=== PATIENT | male | born 1940 | race Caucasian/White ===

== ENCOUNTER → 2018-12-16 | Outpatient (CLI) | payer SELFPAY | END | disposition home or self-care (01) | LOC: RAD 10:39 | PROVIDERS: ATTEND Internal Medicine Hematology & Oncology | DX: C61 Malignant neoplasm of prostate (principal) | CPT/HCPCS: 36573; C1751 ==

== ENCOUNTER 2019-01-04 10:10 | Inpatient (IN) | payer MEDICARE, OTHER ==
[2019-01-04] VITALS (8 sets, daily range): BP systolic 64–105; BP diastolic 38–56
[~2019-01-04] VITALS: Ht 185.4 cm; Wt 93.0 kg
--- NOTE | 2019-01-04 10:17 | NUR ---
THIS IS A 78 YEAR OLD MALE WHO WAS BIB BY AMBULANCE DUE TO SYNCOPAL EPISODE. PT IS VISITING FROM [facility] TO GET CANCER TREATMENT FOR LOCAL MD. PT HAS STAGE 4 PROSTATE CA. PT RECEIVED NUPOGEN YESTERDAY. PT PLACED ON PIG STICKER PACED, AT 76, CONTINOUS SP02 AND CYCLE VS.
[2019-01-04] MEDS ORDERED: SODIUM CHLORIDE 0.9% 1,000ML IVBOLUS ONE (10:30)
[2019-01-04] MEDS ORDERED: SODIUM CHLORIDE FLUSH 10ML SYR IVF ONE (10:30)
[2019-01-04] MEDS: LACTATED RINGERS 500 ML IV SCH ×2 (10:30→11:30)
[2019-01-04] MEDS ORDERED: LEVO150T PO (10:39)
--- NOTE | 2019-01-04 10:50 | NUR ---
IV FLUIDS RUNING WELL VIA PICC LINE. AT BS. DISCUSSED PLAN OF CARE WITH PATIENT. PT VERBALIZED UNDERSTANDING.
[2019-01-04 11:43] LABS: ALBUMIN 3.9 g/dL (3.4-5.0); ANION GAP 7 mmol/L (5-15); CALCIUM 7.9 mg/dL (8.5-10.1); CHLORIDE 104 mmol/L (98-107)
[2019-01-04 11:50] LABS: ALANINE AMINOTRANSFERASE 24 U/L (12-78); ALKALINE PHOSPHATASE 327 U/L (45-117); BILIRUBIN,TOTAL 0.9 mg/dL (0.2-1.0); CREATININE 1.15 mg/dL (0.7-1.3); TOTAL PROTEIN 6.8 g/dL (6.4-8.2); TROPONIN I < 0.015 ng/mL (0.000-0.045)
[2019-01-04 11:59] LABS: MEAN CORPUSCULAR HEMOGLOBIN 30.1 pg (27.5-34.5); MEAN CORPUSCULAR HGB CONC 33.7 g/dL (33.2-36.2); MEAN CORPUSCULAR VOLUME 89.6 fL (81-97); MEAN PLATELET VOLUME 7.5 fL (7.4-10.4); PLATELET COUNT 151 x10^3/uL (130-400); RED BLOOD COUNT 4.37 x10^6/uL (4.38-5.82); RED CELL DISTRIBUTION WIDTH 15.3 % (9.4-14.8)
[2019-01-04 12:05] LABS: MD YES
--- NOTE | 2019-01-04 12:05 | NUR ---
PATIENT STATES HE HAS CHILLS AND IS COLD, TEMP IS 98.8. NOTIFIED.
[2019-01-04 12:13] LABS: BAND#(MANUAL) 0.02 x10^3/uL; BANDS%(MANUAL) 2 % (0-7); LYMPH#(MANUAL) 0.42 x10^3/uL (1-3.4); LYMPHS% (MANUAL) 52 % (22-44); MONOS% (MANUAL) 25 % (2-9); REACTIVE LYMPHS # (MANUAL) 0.03 x10^3/uL (0-0); REACTIVE LYMPHS % (MANUAL) 4 % (0-0); SEG#(MANUAL) 0.14 x10^3/uL (1.8-6.8); SEGS% (MANUAL) 17 % (42-75)
[2019-01-04 12:14] LABS: ANISOCYTOSIS 1+
[2019-01-04 12:15] LABS: <PLATELET ESTIMATE> ADEQUATE; <PLT MORPHOLOGY> NORMAL PLT MORPH; POLYCHROMASIA 1+
--- NOTE | 2019-01-04 12:37 | NUR ---
BREAK RN FOR PRIMARY RN'S SUZANNE AND CORNELIUS. PT RESTING IN POSITION OF COMFORT WITH WARM BLANKETS AND WARMER. ADMITTING PROVIDER AT BEDSIDE FOR EVALUATION. PT DENIES URGE TO USE RESTROOM, AWARE UA SAMPLE IS NEEDED. VSS. SR ON MONITOR. CALL LIGHT IN REACH. FALL PRECAUTIONS IN PLACE. SIDE RAILS UPX2. SPOUSE AT BEDSIDE.
--- NOTE | 2019-01-04 12:49 | NUR ---
BREAK RN. ROOM [id number] RECEIVED, PHONE REPORT CALLED TO FLOOR GERARDO AKERS AT THIS TIME. PT READY FOR TRANSPORT.
[2019-01-04] MEDS ORDERED: ONDANSETRON 2MG/ML, 2ML IVPush PRN (13:00)
[2019-01-04] MEDS ORDERED: SODIUM CHLORIDE FLUSH 10ML SYR IVF PRN (13:00)
[2019-01-04] MEDS ORDERED: ONDANSETRON ODT 4 MG PO PRN (13:00)
--- NOTE | 2019-01-04 13:10 | NUR ---
REPORT AND CARE BACK TO PRIMARY RN'S ROSALVA
[2019-01-04] MEDS: ACETAMINOPHEN 325 MG TABLET PO PRN (13:49)
[2019-01-04] MEDS: LACTATED RINGERS 1,000 ML IV SCH ×2 (13:50→19:49)
[2019-01-04] MEDS: PIPERACILLIN/TAZO/PMX 3.375GM 50 ML IV SCH ×2 (13:50→19:49)
[2019-01-04] MEDS ORDERED: VANCOMYCIN PER PHARMACY MC PRN (14:30)
[2019-01-04] MEDS ORDERED: PHARMACOKINETIC MONITORING MC PRN (14:30)
[2019-01-04] MEDS: VANCOMYCIN 1,600 MG in SODIUM CHLORIDE 0.9% 250 ML IV SCH (14:43)
[2019-01-04 14:58] LABS: CULTURE INDICATED? YES; MICROSCOPIC INDICATED
[2019-01-04] MEDS ORDERED: LACTATED RINGERS 1,000 ML IVBOLUS ONE ×3 (16:30→22:30)
[2019-01-05] MEDS: NOREPINEPHRINE 4 MG in SODIUM CHLORIDE 0.9% 246 ML IV PRN ×4 (01:02→15:52)
[2019-01-05] MEDS: LACTATED RINGERS 1,000 ML IV SCH ×3 (02:15→22:20)
[2019-01-05] MEDS: PIPERACILLIN/TAZO/PMX 3.375GM 50 ML IV SCH ×4 (02:15→20:02)
[2019-01-05] MEDS: LEVOTHYROXINE 150 MCG TABLET PO SCH (05:14)
[2019-01-05] MEDS ORDERED: VASOPRESSIN 100 UNIT in SODIUM CHLORIDE 0.9% 495 ML IV PRN (05:30)
[2019-01-05 07:55] LABS: ANION GAP 7 mmol/L (5-15); CALCIUM 7.5 mg/dL (8.5-10.1); CHLORIDE 102 mmol/L (98-107); CREATININE 1.62 mg/dL (0.7-1.3)
[2019-01-05 08:12] LABS: MD YES; MEAN CORPUSCULAR HEMOGLOBIN 30.5 pg (27.5-34.5); MEAN CORPUSCULAR HGB CONC 33.7 g/dL (33.2-36.2); MEAN CORPUSCULAR VOLUME 90.5 fL (81-97); MEAN PLATELET VOLUME 7.7 fL (7.4-10.4); PLATELET COUNT 164 x10^3/uL (130-400); RED BLOOD COUNT 3.99 x10^6/uL (4.38-5.82); RED CELL DISTRIBUTION WIDTH 15.4 % (9.4-14.8)
[2019-01-05 08:16] LABS: BANDS%(MANUAL) 4 % (0-7); MONOS% (MANUAL) 29 % (2-9); REACTIVE LYMPHS # (MANUAL) 0.07 x10^3/uL (0-0); REACTIVE LYMPHS % (MANUAL) 3 % (0-0)
[2019-01-05 08:17] LABS: <PLATELET ESTIMATE> ADEQUATE; <PLT MORPHOLOGY> NORMAL PLT MORPH; ANISOCYTOSIS 1+; LYMPH#(MANUAL) 1.37 x10^3/uL (1-3.4); LYMPHS% (MANUAL) 57 % (22-44); POLYCHROMASIA 1+; SEG#(MANUAL) 0.17 x10^3/uL (1.8-6.8); SEGS% (MANUAL) 7 % (42-75)
[2019-01-05] MEDS: VANCOMYCIN 1,600 MG in SODIUM CHLORIDE 0.9% 250 ML IV SCH (09:20)
[2019-01-05] MEDS: TBO-FILGRASTIM 480 MCG/0.8 ML SQ SCH (10:59)
[2019-01-05] MEDS: TAMSULOSIN 0.4 MG CAP.ER.24H PO SCH (17:03)
[2019-01-05] MEDS: ANASTROZOLE 1 MG TABLET PO SCH (17:05)
[2019-01-05] MEDS: ACETAMINOPHEN 325 MG TABLET PO PRN (19:21)
[2019-01-06] MEDS: PIPERACILLIN/TAZO/PMX 3.375GM 50 ML IV SCH ×4 (02:00→20:00)
[2019-01-06 03:39] LABS: ALANINE AMINOTRANSFERASE 42 U/L (12-78); ALBUMIN 2.4 g/dL (3.4-5.0); ANION GAP 8 mmol/L (5-15); CALCIUM 7.3 mg/dL (8.5-10.1); CHLORIDE 101 mmol/L (98-107); CREATININE 0.98 mg/dL (0.7-1.3)
[2019-01-06 03:42] LABS: ALKALINE PHOSPHATASE 162 U/L (45-117); BILIRUBIN,TOTAL 0.8 mg/dL (0.2-1.0); TOTAL PROTEIN 5.2 g/dL (6.4-8.2); VANCOMYCIN,RANDOM 8.9 mcg/mL
[2019-01-06 04:29] LABS: MEAN CORPUSCULAR HEMOGLOBIN 30.9 pg (27.5-34.5); MEAN CORPUSCULAR HGB CONC 33.6 g/dL (33.2-36.2); MEAN CORPUSCULAR VOLUME 92.1 fL (81-97); PLATELET COUNT 85 x10^3/uL (130-400); RED BLOOD COUNT 3.16 x10^6/uL (4.38-5.82)
[2019-01-06 04:30] LABS: MD YES
[2019-01-06 04:37] LABS: <PLATELET ESTIMATE> DECREASED; ANISOCYTOSIS 1+; BAND#(MANUAL) 0.35 x10^3/uL; BANDS%(MANUAL) 11 % (0-7); EOS#(MANUAL) 0.06 x10^3/uL (0.0-0.4); EOS% (MANUAL) 2 % (1-7); LYMPH#(MANUAL) 1.31 x10^3/uL (1-3.4); LYMPHS% (MANUAL) 41 % (22-44); MONOS#(MANUAL) 0.77 x10^3/uL (0.3-2.7); MONOS% (MANUAL) 24 % (2-9); MYELOCYTES# (MANUAL) 0.03 x10^3/uL (0-0); MYELOCYTES% (MANUAL) 1 % (0-0); REACTIVE LYMPHS # (MANUAL) 0.06 x10^3/uL (0-0); REACTIVE LYMPHS % (MANUAL) 2 % (0-0); SEG#(MANUAL) 0.61 x10^3/uL (1.8-6.8); SEGS% (MANUAL) 19 % (42-75)
[2019-01-06 04:38] LABS: <PLT MORPHOLOGY> NORMAL PLT MORPH
[2019-01-06 05:48] VITALS: BP 127/64
[2019-01-06] MEDS: LACTATED RINGERS 1,000 ML IV SCH (06:08)
[2019-01-06] MEDS: LEVOTHYROXINE 150 MCG TABLET PO SCH (06:09)
[2019-01-06] MEDS ORDERED: TAMSULOSIN 0.4 MG CAP.ER.24H PO SCH (09:00)
[2019-01-06] MEDS ORDERED: ANASTROZOLE 1 MG TABLET PO SCH (09:00)
[2019-01-06] MEDS ORDERED: LIDODERM 5% PATCH TD ONE (11:00)
[2019-01-06] MEDS: VANCOMYCIN 1,600 MG in SODIUM CHLORIDE 0.9% 250 ML IV SCH (11:17)
[2019-01-06 13:37] LABS: MEAN CORPUSCULAR HEMOGLOBIN 30.7 pg (27.5-34.5); MEAN CORPUSCULAR HGB CONC 33.1 g/dL (33.2-36.2); MEAN CORPUSCULAR VOLUME 92.5 fL (81-97); PLATELET COUNT 94 x10^3/uL (130-400); RED BLOOD COUNT 3.34 x10^6/uL (4.38-5.82); RED CELL DISTRIBUTION WIDTH 15.6 % (9.4-14.8)
[2019-01-06 13:38] LABS: MD YES
[2019-01-06 13:50] LABS: BAND#(MANUAL) 0.76 x10^3/uL; BANDS%(MANUAL) 20 % (0-7); BASOS#(MANUAL) 0.04 x10^3/uL (0-0.1); BASOS% (MANUAL) 1 % (0-1); METAMYELOCYTES# (MANUAL) 0.08 x10^3/uL (0-0); METAMYELOCYTES% (MANUAL) 2 % (0-1); MONOS#(MANUAL) 0.61 x10^3/uL (0.3-2.7); MONOS% (MANUAL) 16 % (2-9); NRBC % (MANUAL) 2 % (0-1)
[2019-01-06 13:51] LABS: ANISOCYTOSIS 1+; LYMPH#(MANUAL) 1.18 x10^3/uL (1-3.4); LYMPHS% (MANUAL) 31 % (22-44); SEG#(MANUAL) 1.14 x10^3/uL (1.8-6.8); SEGS% (MANUAL) 30 % (42-75)
[2019-01-06 13:52] LABS: HYPOCHROMIA 1+
[2019-01-06 13:53] LABS: <PLATELET ESTIMATE> DECREASED; LARGE PLATELETS 1+
[2019-01-06] MEDS: TBO-FILGRASTIM 480 MCG/0.8 ML SQ SCH (15:41)
[2019-01-06] MEDS ORDERED: DILTIAZEM 5 MG/ML, 5ML ONE (17:19)
[2019-01-06] MEDS ORDERED: DILTIAZEM 5 MG/ML, 5ML IVPush PRN (17:30)
[2019-01-06] MEDS: TAMSULOSIN 0.4 MG CAP.ER.24H PO SCH (17:34)
[2019-01-06] MEDS: ANASTROZOLE 1 MG TABLET PO SCH (17:37)
[2019-01-06] MEDS ORDERED: FILTER 0.22 MICRON IV ONE (18:00)
[2019-01-06] MEDS ORDERED: AMIODARONE 900 MG in DEXTROSE 5% 482 ML IV PRN (18:00)
[2019-01-06] MEDS ORDERED: AMIODARONE 150 MG in DEXTROSE 5% 100 ML IV ONE (18:00)
[2019-01-07] MEDS: PIPERACILLIN/TAZO/PMX 3.375GM 50 ML IV SCH (02:00)
[2019-01-07 04:23] LABS: MEAN CORPUSCULAR HEMOGLOBIN 30.7 pg (27.5-34.5); MEAN CORPUSCULAR HGB CONC 33.7 g/dL (33.2-36.2); MEAN CORPUSCULAR VOLUME 91.3 fL (81-97); MEAN PLATELET VOLUME 8.4 fL (7.4-10.4); PLATELET COUNT 114 x10^3/uL (130-400); RED CELL DISTRIBUTION WIDTH 15.3 % (9.4-14.8)
[2019-01-07 04:35] LABS: ANION GAP 7 mmol/L (5-15); CALCIUM 7.7 mg/dL (8.5-10.1); CHLORIDE 108 mmol/L (98-107); CREATININE 0.82 mg/dL (0.7-1.3)
[2019-01-07 04:45] LABS: MD YES
[2019-01-07 04:47] LABS: <PLATELET ESTIMATE> DECREASED; ANISOCYTOSIS 1+; BAND#(MANUAL) 3.08 x10^3/uL; BANDS%(MANUAL) 27 % (0-7); HYPOCHROMIA 1+; LYMPH#(MANUAL) 1.48 x10^3/uL (1-3.4); LYMPHS% (MANUAL) 13 % (22-44); MONOS#(MANUAL) 1.37 x10^3/uL (0.3-2.7); MONOS% (MANUAL) 12 % (2-9); PMNS WITH VACUOLES 1+; SEG#(MANUAL) 5.47 x10^3/uL (1.8-6.8); SEGS% (MANUAL) 48 % (42-75); TOXIC GRAN 1+
[2019-01-07 04:48] LABS: <PLT MORPHOLOGY> NORMAL PLT MORPH
[2019-01-07] MEDS: VANCOMYCIN 1,600 MG in SODIUM CHLORIDE 0.9% 250 ML IV SCH (04:49)
[2019-01-07 04:55] VITALS: BP 99/48
[2019-01-07] MEDS: LEVOTHYROXINE 150 MCG TABLET PO SCH (05:57)
[2019-01-07] MEDS: POTASSIUM CHLORIDE 20 MEQ TAB.ER.PRT PO SCH ×2 (08:31→17:05)
[2019-01-07] MEDS: CEFAZOLIN PMX 2GM/50ML 50 ML IVPB SCH ×2 (09:40→17:05)
[2019-01-07] MEDS: TAMSULOSIN 0.4 MG CAP.ER.24H PO SCH (17:05)
[2019-01-07] MEDS: ANASTROZOLE 1 MG TABLET PO SCH (17:08)
[2019-01-07 19:57] VITALS: BP 118/74
[2019-01-07] MEDS: ENOXAPARIN 100 MG/ML SQ SCH (19:59)
[2019-01-07 20:27] VITALS: BP 118/72
[2019-01-08] MEDS: CEFAZOLIN PMX 2GM/50ML 50 ML IVPB SCH ×3 (00:20→17:09)
[2019-01-08 01:00] VITALS: BP 107/60
[2019-01-08] MEDS: LEVOTHYROXINE 150 MCG TABLET PO SCH (05:00)
[2019-01-08 07:30] VITALS: BP 100/62
[2019-01-08] MEDS: ENOXAPARIN 100 MG/ML SQ SCH ×2 (08:39→20:39)
[2019-01-08 10:24] LABS: MEAN CORPUSCULAR HEMOGLOBIN 30.1 pg (27.5-34.5); MEAN CORPUSCULAR HGB CONC 33.3 g/dL (33.2-36.2); MEAN CORPUSCULAR VOLUME 90.5 fL (81-97); MEAN PLATELET VOLUME 8.2 fL (7.4-10.4); PLATELET COUNT 110 x10^3/uL (130-400); RED CELL DISTRIBUTION WIDTH 15.4 % (9.4-14.8)
[2019-01-08 11:43] LABS: MD YES
[2019-01-08 11:48] LABS: CALCIUM 7.5 mg/dL (8.5-10.1); CREATININE 0.74 mg/dL (0.7-1.3)
[2019-01-08 11:50] LABS: ANISOCYTOSIS 1+; BANDS%(MANUAL) 4 % (0-7); EOS#(MANUAL) 0.45 x10^3/uL (0.0-0.4); EOS% (MANUAL) 2 % (1-7); LYMPH#(MANUAL) 1.35 x10^3/uL (1-3.4); LYMPHS% (MANUAL) 6 % (22-44); SEGS% (MANUAL) 88 % (42-75)
[2019-01-08 11:51] LABS: <PLATELET ESTIMATE> DECREASED; <PLT MORPHOLOGY> NORMAL PLT MORPH
[2019-01-08 11:56] LABS: ANION GAP 7 mmol/L (5-15); CHLORIDE 110 mmol/L (98-107)
[2019-01-08 14:25] VITALS: BP 122/76
[2019-01-08] MEDS: TAMSULOSIN 0.4 MG CAP.ER.24H PO SCH (17:07)
[2019-01-08] MEDS: ANASTROZOLE 1 MG TABLET PO SCH (17:08)
[2019-01-08 20:24] VITALS: BP 114/65
[2019-01-09] MEDS: CEFAZOLIN PMX 2GM/50ML 50 ML IVPB SCH ×3 (00:56→17:12)
[2019-01-09 01:10] VITALS: BP 115/70
[2019-01-09] MEDS: LEVOTHYROXINE 150 MCG TABLET PO SCH (05:50)
[2019-01-09 06:11] LABS: MEAN CORPUSCULAR HEMOGLOBIN 30.3 pg (27.5-34.5); MEAN CORPUSCULAR HGB CONC 33.4 g/dL (33.2-36.2); MEAN CORPUSCULAR VOLUME 90.7 fL (81-97); MEAN PLATELET VOLUME 7.9 fL (7.4-10.4); PLATELET COUNT 111 x10^3/uL (130-400); RED BLOOD COUNT 3.29 x10^6/uL (4.38-5.82); RED CELL DISTRIBUTION WIDTH 15.9 % (9.4-14.8)
[2019-01-09 06:21] LABS: ANION GAP 4 mmol/L (5-15); CALCIUM 7.6 mg/dL (8.5-10.1); CHLORIDE 110 mmol/L (98-107)
[2019-01-09 06:24] LABS: CREATININE 0.75 mg/dL (0.7-1.3)
[2019-01-09 06:59] VITALS: BP 112/65
[2019-01-09 07:08] LABS: MD YES
[2019-01-09 07:10] LABS: <PLATELET ESTIMATE> DECREASED; <PLT MORPHOLOGY> NORMAL PLT MORPH; ANISOCYTOSIS 1+; BAND#(MANUAL) 1.89 x10^3/uL; BANDS%(MANUAL) 9 % (0-7); LYMPH#(MANUAL) 1.26 x10^3/uL (1-3.4); LYMPHS% (MANUAL) 6 % (22-44); MONOS#(MANUAL) 1.05 x10^3/uL (0.3-2.7); MONOS% (MANUAL) 5 % (2-9); SEGS% (MANUAL) 80 % (42-75)
[2019-01-09] MEDS: ENOXAPARIN 100 MG/ML SQ SCH ×2 (09:25→20:19)
[2019-01-09 09:58] VITALS: BP 128/73
[2019-01-09 14:00] VITALS: BP 146/78
[2019-01-09] MEDS: ANASTROZOLE 1 MG TABLET PO SCH (17:11)
[2019-01-09] MEDS: TAMSULOSIN 0.4 MG CAP.ER.24H PO SCH (17:12)
[2019-01-09 19:27] VITALS: BP 151/78
[2019-01-10] MEDS: ACETAMINOPHEN 325 MG TABLET PO PRN ×2 (00:04→22:11)
[2019-01-10] MEDS: CEFAZOLIN PMX 2GM/50ML 50 ML IVPB SCH ×3 (00:04→18:47)
[2019-01-10 02:45] VITALS: BP 143/71
[2019-01-10] MEDS: LEVOTHYROXINE 150 MCG TABLET PO SCH (04:37)
[2019-01-10 05:57] LABS: MEAN CORPUSCULAR HGB CONC 33.8 g/dL (33.2-36.2); MEAN CORPUSCULAR VOLUME 91.8 fL (81-97); MEAN PLATELET VOLUME 8.1 fL (7.4-10.4); PLATELET COUNT 120 x10^3/uL (130-400); RED BLOOD COUNT 3.23 x10^6/uL (4.38-5.82); RED CELL DISTRIBUTION WIDTH 15.4 % (9.4-14.8)
[2019-01-10 06:08] LABS: HCT (SEDRATE) 30.3 % (39.2-51.8)
[2019-01-10 06:32] LABS: BASOPHILS # (AUTO) 0.02 x10^3/uL (0-0.1); BASOPHILS % (AUTO) 0 % (0-1); EOSINOPHILS # (AUTO) 0.14 x10^3/uL (0-0.4); EOSINOPHILS % (AUTO) 1 % (1-7); LYMPHOCYTES # (AUTO) 1.77 x10^3/uL (1-3.4); LYMPHOCYTES % (AUTO) 10 % (22-44); MD SCAN; MONOCYTES # (AUTO) 0.04 x10^3/uL (0.2-0.8); MONOCYTES % (AUTO) 0 % (2-9); NEUTROPHILS # (AUTO) 15.09 x10^3/uL (1.8-6.8); NEUTROPHILS % (AUTO) 88 % (42-75)
[2019-01-10] MEDS: APIXABAN 5 MG TABLET PO SCH ×2 (09:49→22:06)
[2019-01-10 14:18] VITALS: BP 136/72
[2019-01-10] MEDS: LIDODERM 5% PATCH TD PRN (14:21)
[2019-01-10] MEDS: ANASTROZOLE 1 MG TABLET PO SCH (18:56)
[2019-01-10] MEDS: TAMSULOSIN 0.4 MG CAP.ER.24H PO SCH (18:56)
[2019-01-10 19:57] VITALS: BP 137/70
[2019-01-11 00:51] VITALS: BP 124/65
[2019-01-11] MEDS: CEFAZOLIN PMX 2GM/50ML 50 ML IVPB SCH ×3 (01:09→17:08)
[2019-01-11] MEDS: LEVOTHYROXINE 150 MCG TABLET PO SCH (05:19)
[2019-01-11 05:35] LABS: MEAN CORPUSCULAR HEMOGLOBIN 30.7 pg (27.5-34.5); MEAN CORPUSCULAR HGB CONC 33.5 g/dL (33.2-36.2); MEAN CORPUSCULAR VOLUME 91.6 fL (81-97); MEAN PLATELET VOLUME 7.8 fL (7.4-10.4); PLATELET COUNT 126 x10^3/uL (130-400); RED BLOOD COUNT 3.21 x10^6/uL (4.38-5.82); RED CELL DISTRIBUTION WIDTH 15.9 % (9.4-14.8)
[2019-01-11 05:47] LABS: ANION GAP 5 mmol/L (5-15); CALCIUM 7.6 mg/dL (8.5-10.1); CHLORIDE 111 mmol/L (98-107)
[2019-01-11 05:49] LABS: CREATININE 0.72 mg/dL (0.7-1.3)
[2019-01-11 06:10] LABS: MD YES
[2019-01-11 06:12] LABS: BAND#(MANUAL) 1.01 x10^3/uL; BANDS%(MANUAL) 7 % (0-7); EOS#(MANUAL) 0.43 x10^3/uL (0.0-0.4); EOS% (MANUAL) 3 % (1-7); LYMPH#(MANUAL) 2.59 x10^3/uL (1-3.4); LYMPHS% (MANUAL) 18 % (22-44); METAMYELOCYTES# (MANUAL) 0.43 x10^3/uL (0-0); METAMYELOCYTES% (MANUAL) 3 % (0-1); MONOS#(MANUAL) 0.58 x10^3/uL (0.3-2.7); MONOS% (MANUAL) 4 % (2-9); MYELOCYTES# (MANUAL) 0.29 x10^3/uL (0-0); MYELOCYTES% (MANUAL) 2 % (0-0); NRBC % (MANUAL) 1 % (0-1); SEG#(MANUAL) 9.07 x10^3/uL (1.8-6.8); SEGS% (MANUAL) 63 % (42-75)
[2019-01-11 06:13] LABS: <PLATELET ESTIMATE> DECREASED; <PLT MORPHOLOGY> NORMAL PLT MORPH; ANISOCYTOSIS 1+; POLYCHROMASIA 1+
[2019-01-11 07:45] VITALS: BP 149/85
[2019-01-11] MEDS ORDERED: LIDOCAINE 1%, 20ML ONE (09:39)
[2019-01-11] MEDS: APIXABAN 5 MG TABLET PO SCH ×2 (10:56→19:59)
[2019-01-11 13:35] VITALS: BP 139/82
[2019-01-11] MEDS ORDERED: FENTANYL PF 100 MCG/2ML ONE (14:56)
[2019-01-11] MEDS ORDERED: NALOXONE 1 MG/ML, 2ML ONE (14:56)
[2019-01-11] MEDS ORDERED: MIDAZOLAM 1 MG/ML, 5ML ONE ×2 (14:56)
[2019-01-11] MEDS ORDERED: FLUMAZENIL 0.1 MG/1 ML, 5ML ONE (14:56)
[2019-01-11] MEDS: TAMSULOSIN 0.4 MG CAP.ER.24H PO SCH (17:09)
[2019-01-11] MEDS: ANASTROZOLE 1 MG TABLET PO SCH (17:09)
[2019-01-11 19:45] VITALS: BP 134/75
[2019-01-11] MEDS: ACETAMINOPHEN 325 MG TABLET PO PRN (19:59)
[2019-01-12] MEDS: CEFAZOLIN PMX 2GM/50ML 50 ML IVPB SCH ×3 (00:57→17:39)
[2019-01-12 01:37] VITALS: BP 111/66
[2019-01-12] MEDS: LEVOTHYROXINE 150 MCG TABLET PO SCH (05:07)
[2019-01-12 08:02] VITALS: BP 125/74
[2019-01-12] MEDS: APIXABAN 5 MG TABLET PO SCH ×2 (09:05→20:06)
[2019-01-12] MEDS: MAGNESIUM CITRATE 300ML ORAL SOL PO PRN ×2 (09:05)
[2019-01-12 15:28] VITALS: BP 116/68
[2019-01-12] MEDS: ANASTROZOLE 1 MG TABLET PO SCH (17:39)
[2019-01-12] MEDS: TAMSULOSIN 0.4 MG CAP.ER.24H PO SCH (17:39)
[2019-01-12 19:37] VITALS: BP 144/78
[2019-01-12] MEDS: LIDODERM 5% PATCH TD PRN (20:06)
[2019-01-12] MEDS: ACETAMINOPHEN 325 MG TABLET PO PRN (20:06)
[2019-01-13 00:55] VITALS: BP 124/76
[2019-01-13] MEDS: CEFAZOLIN PMX 2GM/50ML 50 ML IVPB SCH (01:17)
[2019-01-13] MEDS: LEVOTHYROXINE 150 MCG TABLET PO SCH (05:20)
[2019-01-13 07:40] VITALS: BP 124/74
[2019-01-13] MEDS: APIXABAN 5 MG TABLET PO SCH (08:35)
[2019-01-13] MEDS ORDERED: ERTA1VIA IV (09:25)
[2019-01-13] MEDS ORDERED: TAMS-11 PO (09:25)
[2019-01-13] MEDS ORDERED: APIX5TAB PO (09:25)
[2019-01-13] MEDS ORDERED: ANAS1TAB PO (09:38)
[2019-01-13] MEDS ORDERED: ERTAPENEM 1 GM in SODIUM CHLORIDE 0.9% 50 ML IV ONE (10:00)
== END 2019-01-13 11:53 | disposition home or self-care (01) | DRG 314 ==
LOC: ED 12:15 → EDIP 12:30 → 4NW 13:21 → CCU 01-05 00:39 → 4EST 01-07 13:44 → 4WST 01-10 17:31
PROVIDERS: ADMIT Family Medicine; ATTEND Family Medicine
PROC: 02HV33Z Insertion of Infusion Device into Superior Vena Cava, Percutaneous Approach (ICD-10-PCS; 2019-01-05)
PROC: B548ZZA Ultrasonography of Superior Vena Cava, Guidance (ICD-10-PCS; 2019-01-05)
PROC: 0JH63XZ Insertion of Tunneled Vascular Access Device into Chest Subcutaneous Tissue and Fascia, Percutaneous Approach (ICD-10-PCS; principal; 2019-01-11)
PROC: 02H633Z Insertion of Infusion Device into Right Atrium, Percutaneous Approach (ICD-10-PCS; 2019-01-11)
PROC: B5181ZA Fluoroscopy of Superior Vena Cava using Low Osmolar Contrast, Guidance (ICD-10-PCS; 2019-01-11)
PROC: B548ZZA Ultrasonography of Superior Vena Cava, Guidance (ICD-10-PCS; 2019-01-11)
DX: T80.211A Bloodstream infection due to central venous catheter, initial encounter (principal); A41.01 Sepsis due to Methicillin susceptible Staphylococcus aureus; R65.21 Severe sepsis with septic shock; N17.0 Acute kidney failure with tubular necrosis; D61.810 Antineoplastic chemotherapy induced pancytopenia; E87.1 Hypo-osmolality and hyponatremia; N39.0 Urinary tract infection, site not specified; I50.42 Chronic combined systolic (congestive) and diastolic (congestive) heart failure; C79.51 Secondary malignant neoplasm of bone; I82.621 Acute embolism and thrombosis of deep veins of right upper extremity; Y83.8 Other surgical procedures as the cause of abnormal reaction of the patient, or of later complication, without mention of misadventure at the time of the procedure; B96.20 Unspecified Escherichia coli [E. coli] as the cause of diseases classified elsewhere; B96.89 Other specified bacterial agents as the cause of diseases classified elsewhere; D69.59 Other secondary thrombocytopenia; T45.1X5A Adverse effect of antineoplastic and immunosuppressive drugs, initial encounter; Y92.89 Other specified places as the place of occurrence of the external cause; E03.9 Hypothyroidism, unspecified; I07.1 Rheumatic tricuspid insufficiency; Z95.0 Presence of cardiac pacemaker; Z66 Do not resuscitate; J32.9 Chronic sinusitis, unspecified; I48.91 Unspecified atrial fibrillation; I45.10 Unspecified right bundle-branch block; I35.1 Nonrheumatic aortic (valve) insufficiency; N40.0 Benign prostatic hyperplasia without lower urinary tract symptoms; C61 Malignant neoplasm of prostate; R21 Rash and other nonspecific skin eruption
CPT/HCPCS: 36415; 36558; 70450; 71045; 76937; 77001; 80048; 80053; 80202; 81001; 82570; 83605; 83735; 84132; 84145; 84300; 84484; 85025; 85651; 86140; 87040; 87077; 87081; 87086; 87147; 87186; 93005; 93306; 93308; 93321; 93325; 99156; 99157; 99285; G0378; J0690; J1335; J1650; J2250; J2543; J3010; J3370; J7120; C1750; J0282; J1447; J2310; J7040; J7050; J7060